=== PATIENT | male | born 1985 | race Caucasian/White ===

== ENCOUNTER 2017-07-06 11:13 | Inpatient (IN) | payer OTHER ==
[~2017-07-06] VITALS: Ht 182.9 cm; Wt 91.6 kg
[2017-07-06 11:19] VITALS: BP 123/81
[2017-07-06 11:37] LABS: POC CA IONIZED 4.7 mg/dL (4.5-5.3); POC CREATININE 1.3 mg/dL (0.6-1.3); POC POTASSIUM 4.4 mmol/L (3.5-4.9)
[2017-07-06 11:38] LABS: ABSOLUTE BASOPHILS 0.1 thou/uL (0.0-0.2); ABSOLUTE EOSINOPHILS 0.2 thou/uL (0.0-0.7); ABSOLUTE LYMPHOCYTES 2.1 thou/uL (0.8-5.3); ABSOLUTE MONOCYTES 0.7 thou/uL (0.0-1.2); ABSOLUTE NEUTROPHILS 5.8 thou/uL (1.6-8.1); BASOPHILS 1.2 %; EOSINOPHILS 2.1 %; HEMATOCRIT 45.5 % (42.0-52.0); HEMOGLOBIN 15.4 gm/dL (14.0-18.0); LYMPHOCYTES 23.8 %; MCH 30.7 pg (26.0-34.0); MCHC 33.8 g/dL (28.0-37.0); MCV 90.9 fL (80.0-100.0); MONOCYTES 7.6 %; NUCLEATED RBCS 0 /100WBC; PLATELET COUNT* 247 thou/uL (150-400); POLYS 65.3 %; RBC 5.01 mil/uL (4.50-6.00); RDW-CV 13.8 % (10.5-14.5); WBC 8.9 thou/uL (4.0-11.0)
[2017-07-06 11:44] LABS: ANION GAP 1 mmol/L (7-16); BUN 13 mg/dL (7-18); CALCIUM 8.8 mg/dL (8.5-10.1); CHLORIDE 105 mmol/L (98-107); CO2 32 mmol/L (21-32); CREATININE 1.3 mg/dL (0.6-1.3); GLUCOSE 88 mg/dL (70-99); INR 1.1; POTASSIUM 4.3 mmol/L (3.5-5.1); PROTIME 10.8 Seconds (9.20-11.50); SODIUM 138 mmol/L (136-145)
[2017-07-06 11:51] LABS: ALBUMIN 3.9 g/dL (3.4-5.0); ALKALINE PHOSPHATASE 56 U/L (46-116); SGOT 10 U/L (15-37); SGPT 26 U/L (30-65); TOTAL BILIRUBIN 0.6 mg/dL (<0.1-1.0); TOTAL PROTEIN 7.1 g/dL (6.4-8.2); TROPONIN-I LEVEL <0.06 ng/mL (<0.06)
[2017-07-06] MEDS ORDERED: IRON325 PO (12:16)
[2017-07-06] MEDS ORDERED: WELLBUTRIN XL300 MG PO (12:16)
[2017-07-06] MEDS ORDERED: LEXAPRO20 MG PO (12:16)
[2017-07-06 13:00] LABS: URINE BILIRUBIN NEGATIVE (Negative); URINE BLOOD NEGATIVE (Negative); URINE CLARITY CLEAR; URINE COLOR YELLOW; URINE GLUCOSE-RANDOM NEGATIVE (Negative); URINE KETONES NEGATIVE (Negative); URINE LEUKOCYTES-REFLEX NEGATIVE (Negative); URINE NITRITE-REFLEX NEGATIVE (Negative); URINE PROTEIN NEGATIVE (Negative); URINE SPECIFIC GRAVITY 1.015 (1.005-1.030); URINE UROBILINOGEN 0.2 E.U./dl (0.2-1.0)
[2017-07-06 13:08] LABS: AMP/METHAMP Negative (Negative); BARBITURATES Negative (Negative); BENZODIAZEPINES Negative (Negative); COCAINE Negative (Negative); METHADONE Negative (Negative); OPIATES Negative (Negative); PCP Negative (Negative); THC Negative (Negative)
[2017-07-06 13:50] VITALS: BP 135/70
[2017-07-06 16:00] VITALS: BP 127/63; BP 141/77
[2017-07-06 20:00] VITALS: BP 134/88
[2017-07-07] VITALS (8 sets, daily range): BP systolic 100–129; BP diastolic 57–83
[2017-07-07 08:17] LABS: ALBUMIN 3.8 g/dL (3.4-5.0); ALKALINE PHOSPHATASE 61 U/L (46-116); ANION GAP 8 mmol/L (7-16); BUN 11 mg/dL (7-18); CALCIUM 8.8 mg/dL (8.5-10.1); CHLORIDE 102 mmol/L (98-107); CHOLESTEROL 156 mg/dL (<200); CO2 31 mmol/L (21-32); CREATININE 1.3 mg/dL (0.6-1.3); GLUCOSE 91 mg/dL (70-99); HDL CHOLESTEROL 42 mg/dL (>40); LDL CHOLESTEROL 103 mg/dL (<100); POTASSIUM 4.1 mmol/L (3.5-5.1); SGOT 11 U/L (15-37); SGPT 24 U/L (30-65); SODIUM 141 mmol/L (136-145); TC:HDL 3.7 Ratio (Not establshd); TOTAL BILIRUBIN 0.4 mg/dL (<0.1-1.0); TRIGLYCERIDE 57 mg/dL (<150); VLDL 11 mg/dL (<40)
[2017-07-07 08:18] LABS: SERUM ASSESSMENT Clear
[2017-07-07 15:06] LABS: GLYCOHEMOGLOBIN (HGB A1C) 4.9 % (4.8-5.6)
--- NOTE | 2017-07-07 15:11 | EKG ---
[place] [address] ELECTROCARDIOGRAM REPORT Name: PABLO MEDINA Room: [address] ADM IN [facility]#: [id number] Admission: 07/06/17 Attend Phys: Vitor Mojica, Discharge: Date of : 89 Report #: [id number] THIS REPORT FOR: //name// [facility] ED Test Date: 2017-07-06 Test Time: 11:46:22 Pat Name: PABLO MEDINA Department: Room: Gender: Room Manager: [place] : 1985 Requested By: Edgardo Brand Order Number: [id number] MD: Connor Diaz Measurements Intervals [place] Rate: 74 P: 5 [place]: 148 QRS: 24 QRSD: 104 T: 45 QT: 371 QTc: 412 Interpretive Statements Sinus rhythm RSR' in V1 or V2, right VCD or RVH ST elev, probable normal early repol pattern Baseline wander in lead(s) V1 No previous ECG available for comparison Electronically Signed On 07-07-2017 15:11:30 CDT by Connor Diaz [email or web address] <ELECTRONICALLY SIGNED> By: Connor Diaz MD, FAC 07/07/17 1511 1146 [id number] Connor Diaz MD, [facility] /EPI
[2017-07-07] MEDS ORDERED: MEDROL4 MG PO (15:30)
[2017-07-07] MEDS ORDERED: KEFLEX500 M1 PO (15:31)
[2017-07-07] MEDS ORDERED: ASPIRIN325 PO (15:33)
[2017-07-10 16:08] LABS: B.burgdorf.IgG Negative (()); B.burgdorf.IgM Negative (())
== END 2017-07-07 16:20 | disposition home or self-care (01) | DRG 74 ==
LOC: M.ERS 11:13 → M.TBA-ER 12:23 → M.2W 12:23
PROVIDERS: Emergency Medicine Emergency Medical Services; ADMIT Family Medicine
DX: G51.0 Bell's palsy (principal); F41.9 Anxiety disorder, unspecified; F43.9 Reaction to severe stress, unspecified; B34.9 Viral infection, unspecified; F32.9 Major depressive disorder, single episode, unspecified; Z79.899 Other long term (current) drug therapy; Z88.8 Allergy status to other drugs, medicaments and biological substances; Z81.8 Family history of other mental and behavioral disorders; Z82.49 Family history of ischemic heart disease and other diseases of the circulatory system